=== PATIENT | male | born 1940 | race Caucasian/White ===

== ENCOUNTER → 2016-11-28 | Day surgery (SDC) | payer MEDICARE, OTHER ==
[~2016-11-28] VITALS: Ht 182.9 cm; Wt 81.5 kg
[~2016-11-28] MED LIST: ASPI325T PO; ASPI81CH CHEW; CILO50TA PO; CYAN1TAB24; CYCLOPENTOLATE HCL 1% OPHT SOLN 2 ML BTL ONE; FLURBIPROFEN 0.03% OPHT SOLN 2.5 ML BTL ONE; FOLI1 PO; HYALURONIDASE/LIDOCAINE/EPINEPHRINE/BUPIVACAINE 4.5 ML SYR RIGHT EYE ONE; HYALURONIDASE/LIDOCAINE/EPINEPHRINE/BUPIVACAINE 6 ML SYR ONE; HYALURONIDASE/LIDOCAINE/EPINEPHRINE/BUPIVACAINE 6 ML SYR RIGHT EYE ONE; LEVO.05 PO; LEVO75TA3 PO; LIDOCAINE HCL 1% 20 ML VIAL ONE; LIDOCAINE HCL 1% PF 30 ML VIAL INFIL ONE; LISI10 PO; LISI10TA3 PO; METO25 PO; METO50TA11 PO; METOPROLOL TARTRATE 25 MG TAB ONE; MULT1TAB46; MULT1TAB93 PO; PHENYLEPHRINE HCL 10% OPTH SOLN 5 ML BTL ONE; PROPARACAINE HCL 0.5% OPHT SOLN 15 ML BTL RIGHT EYE ONE; PROPOFOL 200 MG/20 ML AMP ONE; RISP1TAB2 PO; RISP1TAB54 PO; SODIUM CHLORID 0.9% 500 ML INJ 500 ML ONE; THIA100T PO; TOBRAMYCIN/DEXAMETHASONE OPTH OINT 3.5 GM TUBE RIGHT EYE ONE; TROPICAMIDE 1% OPHT SOLN 15 ML BTL ONE; VITA2000 PO
[2016-11-28 09:10] VITALS: PULSE 60
[2016-11-28] MEDS: FLURBIPROFEN 0.03% OPHT SOLN 2.5 ML BTL RIGHT EYE SCH ×4 (09:15→09:30)
[2016-11-28] MEDS: TROPICAMIDE 1% OPHT SOLN 15 ML BTL RIGHT EYE SCH ×4 (09:15→09:30)
[2016-11-28] MEDS: PHENYLEPHRINE HCL 10% OPTH SOLN 5 ML BTL RIGHT EYE SCH ×4 (09:15→09:30)
[2016-11-28] MEDS: CYCLOPENTOLATE HCL 1% OPHT SOLN 2 ML BTL RIGHT EYE SCH ×4 (09:15→09:30)
[2016-11-28 09:21] VITALS: BP 155/75; PULSE 61; RESP 18; TEMP 98.1; O2SAT 98
[2016-11-28 11:05] VITALS: BP 148/95; PULSE 64; RESP 16; TEMP 98; O2SAT 97
--- NOTE | 2016-12-03 23:43 | MP ---
cc: ANTHONY JOHNS MD [facility] # [id number] DATE OF SURGERY: 11/28/2016 PREOPERATIVE DIAGNOSIS: Visually significant cataract, right eye. POSTOPERATIVE DIAGNOSIS: Visually significant cataract, right eye. OPERATION: Phacoemulsification with posterior chamber lens implantation, right eye. SURGEON: Anthony Johns MD ANESTHESIA: Retrobulbar with MAC. COMPLICATIONS: None. PROCEDURE: After informed consent was obtained, the patient was brought into the operative suite and placed on appropriate monitors by the Anesthesia Service. The patient had received a prior retrobulbar injection of local anesthetic by the Anesthesia Service in the holding area. The patient's operative eye was then prepped and draped in the usual sterile fashion. A wire lid speculum was placed. A paracentesis incision was made in the peripheral cornea with a 1 mm devora keratome. The anterior chamber was filled with viscoelastic. The anterior chamber was then entered through a stepped, clear corneal incision using a sharp 3 mm devora keratome. A circular tear capsulorrhexis was then made with a bent needle cystitome. Following hydrodissection of the lens nucleus with balanced saline, phaco-emulsification of the nucleus was performed using a modified chopping technique. The remaining cortex was removed with irrigation/aspiration. The prior two procedures were both performed using the handpieces of the [employer] phaco unit. The capsular bag was then filled with viscoelastic. The intraocular lens was then injected into the capsular bag and positioned. The type of intraocular lens and its power can be found elsewhere in this chart. The remaining viscoelastic was then removed from the anterior chamber with the IA handpiece. The anterior chamber was reformed with balanced saline. The wound was then closed securely with stromal hydration. It was found to be watertight to an intraocular pressure of at least 30 mmHg by palpation. A small amount of balanced salt solution was then removed through the paracentesis site and the intraocular pressure at the end of the case was approximately 20 by palpation. All drapes were then removed. TobraDex ointment was then placed in the eye, which was closed beneath a semi-pressure patch dressing. The patient tolerated this procedure well and left the operating room awake and alert. The patient is to follow-up in my office in the morning. ADDENDUM: Due to the patient's poorly dilating pupil, a Malyugin ring was employed to promote and maintain adequate pupillary mydriasis for phacoemulsification and lens implantation. MD PAULA Muller/JOHNIE /10:46 AM /11:37 PM
== END | disposition home or self-care (01) ==
LOC: CSDC 07:57
PROVIDERS: ATTEND Optometrist Occupational Vision
DX: H25.811 Combined forms of age-related cataract, right eye (principal); I11.9 Hypertensive heart disease without heart failure; I25.10 Atherosclerotic heart disease of native coronary artery without angina pectoris; I25.2 Old myocardial infarction
CPT/HCPCS: 00142; 66984; J7040; V2632

== ENCOUNTER 2017-03-29 19:06 | Inpatient (IN) | payer MEDICARE, OTHER ==
[~2017-03-29] VITALS: Ht 182.9 cm; Wt 89.0 kg
[2017-03-29 02:35] VITALS: BP 153/77; PULSE 71; RESP 16; TEMP 98.4; O2SAT 99
[~2017-03-29 19:06] MED LIST changes: -ASPI81CH CHEW; -CILO50TA PO; -CYAN1TAB24; -CYCLOPENTOLATE HCL 1% OPHT SOLN 2 ML BTL ONE; -FLURBIPROFEN 0.03% OPHT SOLN 2.5 ML BTL ONE; -HYALURONIDASE/LIDOCAINE/EPINEPHRINE/BUPIVACAINE 4.5 ML SYR RIGHT EYE ONE; -HYALURONIDASE/LIDOCAINE/EPINEPHRINE/BUPIVACAINE 6 ML SYR ONE; -HYALURONIDASE/LIDOCAINE/EPINEPHRINE/BUPIVACAINE 6 ML SYR RIGHT EYE ONE; -LEVO75TA3 PO; -LIDOCAINE HCL 1% 20 ML VIAL ONE; -LIDOCAINE HCL 1% PF 30 ML VIAL INFIL ONE; -LISI10TA3 PO; -METO50TA11 PO; -METOPROLOL TARTRATE 25 MG TAB ONE; -MULT1TAB46; -MULT1TAB93 PO; -PHENYLEPHRINE HCL 10% OPTH SOLN 5 ML BTL ONE; -PROPARACAINE HCL 0.5% OPHT SOLN 15 ML BTL RIGHT EYE ONE; -PROPOFOL 200 MG/20 ML AMP ONE; -RISP1TAB2 PO; -SODIUM CHLORID 0.9% 500 ML INJ 500 ML ONE; -TOBRAMYCIN/DEXAMETHASONE OPTH OINT 3.5 GM TUBE RIGHT EYE ONE; -TROPICAMIDE 1% OPHT SOLN 15 ML BTL ONE; -VITA2000 PO
[2017-03-29 19:13] VITALS: BP 100/58; PULSE 91; RESP 14; TEMP 98.3; O2SAT 96
[2017-03-29 20:00] VITALS: BP 117/58; PULSE 82; RESP 18; O2SAT 98
[2017-03-29] MEDS ORDERED: VITA2000 PO (20:13)
[2017-03-29] MEDS ORDERED: LEVO75TA3 PO (20:13)
[2017-03-29] MEDS ORDERED: RISP1TAB2 PO (20:13)
[2017-03-29] MEDS ORDERED: CYAN1TAB24 (20:13)
[2017-03-29] MEDS ORDERED: ASPI81CH CHEW (20:13)
[2017-03-29] MEDS ORDERED: METO50TA11 PO (20:13)
[2017-03-29] MEDS ORDERED: MULT1TAB46 (20:13)
[2017-03-29] MEDS ORDERED: LISI10TA3 PO (20:13)
[2017-03-29] MEDS ORDERED: CILO50TA PO (20:13)
[2017-03-29] MEDS ORDERED: MULT1TAB93 PO (20:14)
[2017-03-29] MEDS ORDERED: SODIUM CHLORIDE 0.9% FLUSH 10 ML FLUSH IVF PRN (20:30)
--- NOTE | 2017-03-29 20:59 | PD ---
HPI Chief Complaint: Fall Time Seen by Provider: 20:09 Travel History International Travel<30 days: No Contact w/Intl Traveler<30days: No Traveled to known affect area: No History of Present Illness HPI Patient 77-year-old male presents emergency Department with weakness and fall and presyncopal symptoms. Patient's is accompanied by his sister states patient has a history of mild dementia. Apparently the patient was walking outside of his trailer and suddenly fell forward onto his knees. Patient states he felt very dizzy prior to this happening and almost blacked out. He denied any chest pain shortness of breath abdominal pain nausea or vomiting or diarrhea prior leading up to or following the event. The patient was evaluated by EMS on scene and apparently his blood pressure was 70 systolic. At that time the patient did not want to go to the hospital. He went under the care of a sister who took him into the house and was running serial blood pressures on him and was getting readings in the 60s for his blood pressure. She insisted that he come to the hospital and he complied. On arrival the patient is normotensive. He states that he had a catheterization partially 10 years ago, followed by Dr. sierra. Denies any head injury neck injury. PFSH Past Medical History Arthritis: No Anxiety: No Depression: Yes (Shizophrenia) Cancer: No Cardiovascular Problems: Yes Congestive Heart Failure: Yes Coronary Artery Disease: Yes Diabetes: No Diminished Hearing: No Endocrine: Yes Gastrointestinal Disorders: Yes Genitourinary: No Hepatitis: No Hiatal Hernia: No Hypertension: Yes Immune Disorder: No Medical other: Yes (PVD; parotid mass; macular degeneration) Musculoskeletal: No Neurologic: Yes (PARANOID SCHIZOPHRENIC , DEMENTIA WITH PSYCHOSIS) Psychiatric: Yes (Pt has been diagnosed with Psychosis NOS, Dementia WITH PSYCHOSIS) Reproductive: No Respiratory: No Immunizations Current: Yes Myocardial Infarction: Yes (2006) Schizophrenia: Yes Thyroid Disease: Yes (HYPOTHYROID) Tetanus Vaccination: Unknown Influenza Vaccination: Yes Past Surgical History Abdominal Surgery: Yes (CHOLECYSTECTOMY) AICD: No Cardiac Surgery: Yes (Hx cardiac cath, stents - see admit from 06/2007) Cholecystectomy: Yes Ear Surgery: No Eye Surgery: No Genitourinary Surgery: Yes (VASECTOMY) Gynecologic Surgery: No Joint Replacement: No Neurologic Surgery: No Pacemaker: No Tonsillectomy: Yes Other Surgery: Yes Social History Alcohol Use: Yes (1 per Year) Tobacco Use: No Substance Use: No Allergies-Medications (Allergen,Severity, Reaction): Coded Allergies: Penicillin (Verified Allergy, Mild, 03/29/17) PT DENIES Reported Meds & Prescriptions Reported Meds & Active Scripts Active Reported Eye Vitamins & Minerals (Multiple Vitamins W/ Minerals) 1 Tab Tab 1 Cap PO DAILY Multi Vitamin Daily (Multiple Vitamin) 1 Tab Tab B12 (Cyanocobalamin) 1,000 Mcg Tab 1,500 Vitamin D3 (Cholecalciferol) 2,000 Unit Cap 2,000 Units PO DAILY Levothyroxine (Levothyroxine Sodium) 75 Mcg Tab 75 Mcg PO DAILY Risperidone 1 Mg Tab 1 Mg PO DAILY Lisinopril 10 Mg Tab 10 Mg PO DAILY Metoprolol Succinate ER 24 HR (Metoprolol Succinate) 50 Mg Tab 50 Mg PO DAILY Cilostazol 50 Mg Tab 50 Mg PO BID Aspirin 81 Mg Chew 81 Mg CHEW DAILY Review of Systems Except as stated in HPI: all other systems reviewed are Neg Physical Exam Narrative GENERAL: Well-developed well-nourished no apparent distress SKIN: Mild superficial abrasions to bilateral knees over the kneecaps. HEAD: Atraumatic. Normocephalic. Signs no raccoons eyes EYES: Pupils equal and round. No scleral icterus. No injection or drainage. ENT: No nasal bleeding or discharge. Mucous membranes pink and moist. NECK: Trachea midline. No JVD. No midline neck tenderness CARDIOVASCULAR: Regular rate and rhythm. No murmur appreciated. RESPIRATORY: No accessory muscle use. Clear to auscultation. Breath sounds equal bilaterally. GASTROINTESTINAL: Abdomen soft, non-tender, nondistended. Hepatic and splenic margins not palpable. MUSCULOSKELETAL: No obvious deformities. No clubbing. No cyanosis. No edema. No bony tenderness of either knee, full nontender range of motion. Is able to family. No tenderness at the hip ankles or feet, no tenderness of the shoulders elbows wrists or hands. Pulses motor and sensory intact distally in all 4 extremity's per NEUROLOGICAL: Awake and alert. No obvious cranial nerve deficits. Motor grossly within normal limits. Normal speech. PSYCHIATRIC: Appropriate mood and affect; insight and judgment normal. Data Data Last Documented VS Vital Signs Date Time Temp Pulse Resp B/P Pulse Ox O2 Delivery O2 Flow Rate FiO2 03/29/17 23:39 98 03/29/17 20:00 03/29/17 20:00 82 18 Room Air 03/29/17 19:13 98.3 Orders Electrocardiogram (03/29/17 20:27) Basic Metabolic Panel (Bmp) (03/29/17 20:27) B-Type Natriuretic Peptide (03/29/17 20:27) Ckmb (Isoenzyme) Profile (03/29/17 20:27) Complete Blood Count With Diff (03/29/17 20:) Magnesium (Mg) (03/29/17 20:27) Prothrombin Time / Inr (Pt) (03/29/17 20:27) Act Partial Throm Time (Ptt) (03/29/17 20:27) Troponin I (03/29/17 20:27) Chest, Single Ap (03/29/17 20:27) Ecg Monitoring (03/29/17 20:27) Iv Access Insert/Monitor (03/29/17 20:27) Oximetry (03/29/17 20:27) Oxygen Administration (03/29/17 20:27) Sodium Chloride 0.9% Flush (Ns Flush) (03/29/17 20:30) Ct Brain W/O Iv Contrast(Rout) (03/29/17 ) Ct Cerv Spine W/O Contrast (03/29/17 ) CKMB (03/29/17 20:50) CKMB% (03/29/17 20:50) Sodium Chlorid 0.9% 500 Ml Inj (Ns 500 M (03/29/17 21:45) Thyroid Stimulating Hormone (03/29/17 21:34) Free T3 (03/29/17 21:34) Free Thyroxine (T4) (03/29/17 21:34) Admit To Inpatient (03/29/17 ) Code Status (03/29/17 23:25) Vital Signs (Adult) Q4H (03/29/17 23:25) Activity Oob With Assistance (03/29/17 23:25) Healthcare Specialist / Telemetry .CONTINUOUS (03/29/17 23:25) Diet Heart Healthy (03/30/17 Breakfast) Sodium Chloride 0.9% Flush (Ns Flush) (03/29/17 23:30) Sodium Chloride 0.9% Flush (Ns Flush) (03/30/17 09:00) Acetaminophen (Tylenol) (03/29/17 23:30) Ondansetron Inj (Zofran Inj) (03/29/17 23:30) Basic Metabolic Panel (Bmp) (03/30/17 06:00) Complete Blood Count With Diff (03/30/17 06:00) Resp Oxygen Ray C Titrat 1-4 L (03/29/17 ) Pt Request For Service (03/29/17 23:25) Scd Bilateral/Knee High DO.BID (03/29/17 23:25) Naloxone Inj (Narcan Inj) (03/29/17 23:30) Magnesium Hydroxide Liq (Milk Of Magnesi (03/29/17 23:30) Inpatient Certification (03/29/17 ) 1/2 Ns + Kcl 20 Meq Inj (1/2 Ns + Kcl 20 (03/29/17 23:30) Aspirin (Aspirin) (03/30/17 09:00) Nitroglycerin Sl (Nitrostat Sl) (03/29/17 23:30) Alprazolam (Xanax) (03/29/17 23:30) Creatine Kinase (Cpk) (03/30/17 04:00) Creatine Kinase (Cpk) (03/30/17 10:00) Magnesium (Mg) (03/29/17 23:30) Electrocardiogram (03/30/17 04:00) Electrocardiogram (03/30/17 10:00) Scd Bilateral/Knee High DO.BID (03/29/17 23:30) Troponin I (03/30/17 04:00) Troponin I (03/31/17 04:00) Cilostazol (Pletal) (03/30/17 09:00) Levothyroxine (Synthroid) (03/30/17 09:00) Risperidone (Risperdal) (03/30/17 09:00) Rapid Plasma Regin (Rpr) W Ttr (03/29/17 23:37) Vitamin B12 (03/29/17 23:37) Folate, Serum (03/29/17 23:37) Ammonia (03/29/17 23:37) Admit Order (Ed Use Only) (03/29/17 ) Aspirin Chew (Aspirin Chew) (03/29/17 23:45) Labs Laboratory Tests Test 03/29/17 20:50 White Blood Count 7.7 TH/MM3 Red Blood Count 4.00 MIL/MM3 Hemoglobin 11.7 GM/DL Hematocrit 36.0 % Mean Corpuscular Volume 90.1 FL Mean Corpuscular Hemoglobin 29.2 PG Mean Corpuscular Hemoglobin 32.4 % Concent Red Cell Distribution Width 13.6 % Platelet Count 146 TH/MM3 Mean Platelet Volume 9.7 FL Neutrophils (%) (Auto) 72.4 % Lymphocytes (%) (Auto) 15.6 % Monocytes (%) (Auto) 6.0 % Eosinophils (%) (Auto) 4.2 % Basophils (%) (Auto) 1.8 % Neutrophils # (Auto) 5.6 TH/MM3 Lymphocytes # (Auto) 1.2 TH/MM3 Monocytes # (Auto) 0.5 TH/MM3 Eosinophils # (Auto) 0.3 TH/MM3 Basophils # (Auto) 0.1 TH/MM3 CBC Comment AUTO DIFF Differential Comment AUTO DIFF CONFIRMED Platelet Estimate LOW Platelet Morphology Comment NORMAL Prothrombin Time 12.0 SEC Prothromb Time International 1.1 RATIO Ratio Activated Partial 21.7 SEC Thromboplast Time Sodium Level 139 MEQ/L Potassium Level 4.1 MEQ/L Chloride Level 105 MEQ/L Carbon Dioxide Level 27.6 MEQ/L Anion Gap 6 MEQ/L Blood Urea Nitrogen 29 MG/DL Creatinine 1.90 MG/DL Estimat Glomerular Filtration 35 ML/MIN Rate Random Glucose 198 MG/DL Calcium Level 8.4 MG/DL Magnesium Level 2.3 MG/DL Total Creatine Kinase 119 U/L Creatine Kinase MB 1.8 NG/ML Troponin I 0.56 NG/ML B-Type Natriuretic Peptide 238 PG/ML Thyroid Stimulating Hormone 10.400 uIU/ML [address] [place] [address] Medical Decision Making Medical Screen Exam Complete: Yes Emergency Medical Condition: Yes Interpretation(s) EKG shows sinus rhythm with a singular PVC, a bundle branch block, no concerning ST T changes. Left axis deviation. Abnormal EKG. Comparison to 03/03 shows T waves are no longer inverted in V4 through V6. This nonspecific change. Differential Diagnosis ACS, AMI, hypertension, acute kidney injury, dehydration, head injury, neck injury seems highly unlikely. Narrative Course Patient was roomed in the emergency department, he does have some mild confusion and majority of history is obtained from his sister Lindsay Espinoza ([phone]). Patient EKG does show some minor nonspecific changes from previous. Troponin is +0.5 patient has been running point fours in the past. In March 2016 patient did have a reversible perfusion defect on nuclear medicine scan. Concerning is that the patient has an elevation in creatinine over labs at that time indicating an acute kidney injury. He was given 500 cc normal saline cautiously. Have attempted to contact his sister she left the hospital to obtain his risk factors for heparin. The patient was discussed with Dr. Obrien recommends [facility] admission. Highly doubt any fractures in this patient is able to ambulate has no bony tenderness. Last 24 hours Impressions Chest X-Ray 03/29/172026 Signed Impressions: Service Date/Time: Wednesday, March 29, 2017 21:06 - CONCLUSION: Compensated cardiomegaly otherwise negative Denis López MD FACR Head CT 03/29/17 0000 Signed Impressions: Service Date/Time: Wednesday, March 29, 2017 21:03 - CONCLUSION: Negative for acute process. MD PERRY MeyersR Cervical Spine CT 03/29/17 0000 Signed Impressions: Service Date/Time: Wednesday, March 29, 2017 21:03 - CONCLUSION: 1. Degenerative changes as described above. 2. There is no evidence of fracture. Denis López MD FACR Patient was discussed with who agrees for admission. He'll be transferred to [facility] at the [facility]. We'll hold off on heparinization at this time. Diagnosis Primary Impression: Elevated troponin Additional Impressions: Hypothyroidism Qualified Code: E03.9 - Hypothyroidism, unspecified type Acute kidney injury Admitting Information Admitting Physician Requests: Observation Condition: Stable Manjinder Humphrey MD March 29, 2017 20:58
[2017-03-29 21:17] LABS: AUTOMATED NEUTROPHIL # 5.6 TH/MM3 (1.8-7.7); BASOPHIL # 0.1 TH/MM3 (0-0.2); BASOPHIL % 1.8 % (0.0-2.0); EOSINOPHIL # 0.3 TH/MM3 (0-0.4); EOSINOPHIL % 4.2 % (0.0-4.0); LYMPH % 15.6 % (9.0-44.0); LYMPHOCYTE # 1.2 TH/MM3 (1.0-4.8); MEAN CELL VOLUME 90.1 FL (80.0-100.0); MEAN CORPUSCULAR HEMOGLOBIN 29.2 PG (27.0-34.0); MEAN CORPUSCULAR HGB CONC 32.4 % (32.0-36.0); NEUT % 72.4 % (16.0-70.0); PLATELET COUNT 146 TH/MM3 (150-450); RED CELL DISTRIBUTION WIDTH 13.6 % (11.6-17.2); WHITE BLOOD COUNT 7.7 TH/MM3 (4.0-11.0)
--- NOTE | 2017-03-29 21:19 | RADHPO ---
EXAM DATE/TIME: 03/29/2017 21:06 [facility] COMPARISON: CHEST SINGLE AP, March 02, 2016, 16:13. INDICATIONS : Chest pain. MEDICAL HISTORY : None. SURGICAL HISTORY : None. ENCOUNTER: Initial ACUITY: 2 days PAIN SCORE: 6/10 LOCATION: Bilateral chest FINDINGS: The lungs are clear. The heart is minimally enlarged. The pulmonary vascularity is normal. There is n o evidence for infiltrate or failure. The portion of the bony skeleton visualized is unremarkable. CONCLUSION: Compensated cardiomegaly otherwise negative Denis López MD FACR Board Certified Radiologist. This report was verified electronically.
[2017-03-29 21:20] LABS: CHLORIDE 105 MEQ/L (98-107); POTASSIUM 4.1 MEQ/L (3.5-5.1); SODIUM (NA) 139 MEQ/L (136-145)
[2017-03-29 21:23] LABS: ANION GAP 6 MEQ/L (5-15); BICARBONATE 27.6 MEQ/L (21.0-32.0); BLOOD UREA NITROGEN 29 MG/DL (7-18); MAGNESIUM 2.3 MG/DL (1.5-2.5)
[2017-03-29 21:26] LABS: GLOMERULAR FILTRATION RATE 35 ML/MIN (>89)
[2017-03-29 21:27] LABS: APTT (PATIENT) 21.7 SEC (24.3-30.1); HEMO FLAGS AUTO DIFF; INTERNATIONAL NORMALIZED RATIO 1.1 RATIO
[2017-03-29 21:29] LABS: CREATINE KINASE 119 U/L (39-308)
[2017-03-29 21:41] LABS: CKMB 1.8 NG/ML (0.5-3.6)
[2017-03-29] MEDS ORDERED: SODIUM CHLORID 0.9% 500 ML INJ 500 ML IV ONE (21:45)
--- NOTE | 2017-03-29 21:57 | RADHPO ---
EXAM DATE/TIME: 03/29/2017 21:03 [facility] COMPARISON: No previous studies available for comparison. INDICATIONS : Syncope with fall. RADIATION DOSE: 64.84 CTDIvol (mGy) MEDICAL HISTORY : Cardiovascular disease. Dementia. Hypertension. SURGICAL HISTORY : Tonsillectomy. Cholecystectomy. ENCOUNTER: Initial ACUITY: 1 day PAIN SCALE: 0/10 LOCATION: cranial TECHNIQUE: Multiple contiguous axial images were obtained of the head. Using automated exposure control and adj ustment of the mA and/or kV according to patient size, radiation dose was kept as low as reasonably a chievable to obtain optimal diagnostic quality images. FINDINGS: CEREBRUM: The ventricles are normal for age. No evidence of midline shift, mass lesion, hemorrhage or acute in farction. No extra-axial fluid collections are seen. POSTERIOR FOSSA: The cerebellum and brainstem are intact. The 4th ventricle is midline. The cerebellopontine angle i s unremarkable. EXTRACRANIAL: The visualized portion of the orbits is intact. SKULL: The calvaria is intact. No evidence of skull fracture. Moderate skull base the vascular calcifications are noted. CONCLUSION: Negative for acute process. Denis López MD FACR on March 29, 2017 at 21:55 Board Certified Radiologist. This report was verified electronically.
[2017-03-29 22:01] LABS: PLATELET ESTIMATE SMEAR LOW (NORMAL); PLATELET MORPHOLOGY NORMAL (NORMAL); SCAN/DIFF AUTO DIFF CONFIRMED
--- NOTE | 2017-03-29 22:04 | RADHPO ---
EXAM DATE/TIME: 03/29/2017 21:03 [facility] COMPARISON: No previous studies available for comparison. INDICATIONS : Syncope with fall. RADIATION DOSE: 26.49 CTDIvol (mGy) MEDICAL HISTORY : Dementia. Cardiovascular disease Hypertension. SURGICAL HISTORY : Tonsillectomy. Cholecystectomy. ENCOUNTER: Initial ACUITY: 1 day PAIN SCALE: 0/10 LOCATION: Neck TECHNIQUE: Volumetric scanning of the cervical spine was performed. Multiplanar reconstructions i n the sagittal, coronal and oblique axial planes were performed. Using automated exposure control a nd adjustment of the mA and/or kV according to patient size, radiation dose was kept as low as reason ably achievable to obtain optimal diagnostic quality images. FINDINGS: There are extensive degenerative changes in the cervical spine. Alignment is anatomic in the sagitta l and coronal projections. Degenerative changes are seen at C1-C2. C2-C3: Mild interspace ridging is present without significant spinal stenosis. C3-C4: Moderate facet disease is present with mild bilateral neural foraminal encroachment and uncin ate ridging. C4-C5: Generalized bulging is present with mild bilateral neural foraminal encroachment. Moderate f acet disease is present on the right. C5-C6: Moderate central bulging is present with bilateral neural foraminal encroachment with facet d isease worse on the right. C6-C7: Moderate uncinate ridging is present with significant left-sided neural foraminal encroachmen t. C7-T1: The bony spinal canal is normal in size. No evidence of disc bulge or herniation. The neura l foramina are bilaterally patent. CONCLUSION: 1. Degenerative changes as described above. 2. There is no evidence of fracture. Denis López MD FACR on March 29, 2017 at 21:55 Board Certified Radiologist. This report was verified electronically.
[2017-03-29 22:05] VITALS: BP 149/73; PULSE 64; RESP 18; O2SAT 99
[2017-03-29 23:10] VITALS: BP 134/72; PULSE 60; RESP 16; O2SAT 97
[2017-03-29] MEDS ORDERED: NALOXONE HCL 0.4 MG/ML AMP IV PRN (23:30)
[2017-03-29] MEDS ORDERED: ONDANSETRON HCL 4 MG/2 ML VIAL IVP PRN (23:30)
[2017-03-29] MEDS ORDERED: ACETAMINOPHEN 325 MG TAB PO PRN (23:30)
[2017-03-29] MEDS ORDERED: SODIUM CHLORIDE 0.9% FLUSH 10 ML FLUSH IV FLUSH PRN (23:30)
[2017-03-29] MEDS ORDERED: ALPRAZolam 0.25 MG TAB PO PRN (23:30)
[2017-03-29] MEDS ORDERED: MAGNESIUM HYDROXIDE SUSP 30 ML CUP PO PRN (23:30)
[2017-03-29] MEDS ORDERED: NITROGLYCERIN 0.4 MG SL 25 TABS/BTL SL PRN (23:30)
[2017-03-29 23:39] VITALS: O2SAT 98
[2017-03-29] MEDS ORDERED: ASPIRIN 81 MG CHEW TAB CHEW ONE (23:45)
[2017-03-30] VITALS (25 sets, daily range): BP systolic 132–156; BP diastolic 64–83; PULSE 58–95; RESP 14–18; TEMP 97.5–98.6; O2SAT 92–100
[2017-03-30 00:04] LABS: FREE T3 1.45 PG/ML (2.18-3.98); FREE T4 0.93 NG/DL (0.76-1.46)
[2017-03-30] MEDS: 1/2 NS + KCL 20 MEQ INJ 1,000 ML IV SCH ×3 (00:26→23:20)
[2017-03-30 04:38] LABS: AUTOMATED NEUTROPHIL # 4.6 TH/MM3 (1.8-7.7); BASOPHIL % 0.4 % (0.0-2.0); EOSINOPHIL # 0.5 TH/MM3 (0-0.4); EOSINOPHIL % 6.7 % (0.0-4.0); HEMATOCRIT 34.7 % (39.0-51.0); HEMO FLAGS DIFF FINAL; LYMPH % 23.9 % (9.0-44.0); LYMPHOCYTE # 1.8 TH/MM3 (1.0-4.8); MEAN CELL VOLUME 89.7 FL (80.0-100.0); MEAN CORPUSCULAR HGB CONC 33.5 % (32.0-36.0); MONO % 9.4 % (0.0-8.0); NEUT % 59.6 % (16.0-70.0); PLATELET COUNT 125 TH/MM3 (150-450); RED BLOOD COUNT 3.87 MIL/MM3 (4.50-5.90); RED CELL DISTRIBUTION WIDTH 14.5 % (11.6-17.2); WHITE BLOOD COUNT 7.7 TH/MM3 (4.0-11.0)
[2017-03-30 04:58] LABS: BICARBONATE 25.8 MEQ/L (21.0-32.0); POTASSIUM 3.8 MEQ/L (3.5-5.1)
[2017-03-30] MEDS: LEVOTHYROXINE SODIUM 75 MCG TAB PO SCH (07:00)
[2017-03-30] MEDS: SODIUM CHLORIDE 0.9% FLUSH 10 ML FLUSH IV FLUSH SCH ×2 (09:24→20:20)
[2017-03-30] MEDS: ASPIRIN 325 MG TAB PO SCH (09:24)
--- NOTE | 2017-03-30 10:50 | MB ---
cc: HIEN GARRETT DATE OF CONSULTATION: 03/30/2017 REASON FOR CONSULTATION: Abnormal troponin levels, hypotension. HISTORY OF PRESENT ILLNESS The patient is a 77-year-old white male with a history of chronic renal insufficiency, hypothyroidism, coronary artery disease, ischemic cardiomyopathy who was brought to the hospital after a near-syncopal episode. The patient states he was waiting for the bus when after looking into the sun he became severely lightheaded and suddenly fell to his knees. The patient states he never lost consciousness but did experience near-syncope. Emergency services at the scene apparently noted his systolic blood pressure in the 70s. Initially the patient did not want to go to the hospital. His sister continued to check his blood pressure and because it was persistently low, he was brought to the hospital. The patient denies any prior episode of syncope or near-syncope. He also denies any recent chest pains, shortness of breath, palpitations, pedal edema, paroxysmal nocturnal dyspnea. For the most part he is sedentary. He reports compliance with medications. PAST MEDICAL HISTORY 1. Coronary artery disease status post acute inferior wall myocardial infarction 06/12/2007 at which time he underwent bare metal stenting of the proximal right coronary using a 3.5-mm Vision stent and bare metal stenting of the mid LAD using a 2.0-mm Vision stent by Dr. Danial Ferreira. 2. Ischemic cardiomyopathy with ejection fraction of 30-35% by echo 03/04/2016. 3. Chronic renal insufficiency. 4. Hypothyroidism. 5. Schizophrenia. 6. Paroxysmal atrial fibrillation shortly after his coronary intervention back in 2006 without definite recurrence. PAST SURGICAL HISTORY 1. Right cataract operation 11/28/2016. 2. Cholecystectomy. 3. Tonsillectomy. CARDIAC MEDICATIONS AT HOME: 1. Lisinopril 10 mg daily. 2. Metoprolol succinate 50 mg daily. 3. Aspirin 81 mg daily. 4. Pletal 50 mg b.i.d. ALLERGIES Penicillin FAMILY HISTORY Noncontributory. SOCIAL HISTORY The patient quit smoking about a year ago. He denies alcohol or drug abuse. REVIEW OF SYSTEMS: As in the history of present illness, otherwise negative or noncontributory. He also denies headache, visual changes, unilateral weakness or numbness, abdominal pain, melena, dyspepsia, bright red blood per rectum. PHYSICAL EXAMINATION On physical examination blood pressure 153/77 with a pulse of 58, respirations 16. In general he is a well-developed, well-nourished white male in no acute distress HEENT examination: Jugular venous pressure is normal. Carotid pulses are 2+ bilaterally and without bruits. CHEST: Examination of the chest reveals unlabored respiratory effort with clear lung sheridan. CARDIAC: On cardiac examination he has a regular rhythm and rate without S3-S4 or murmur. ABDOMEN: He has a soft, nontender abdomen. Bowel sounds are present. There is no definite hepatosplenomegaly. EXTREMITIES: Examination of the extremities reveals no clubbing, cyanosis or edema. EKG shows normal sinus rhythm, right bundle-branch block, inferior ST-elevation consider acute injury pattern, poor R-wave progression, no change compared to previous EKGs. LABORATORY DATA: Laboratory data includes WBC 7.7, hemoglobin 11.6, platelets 125, potassium 3.8, BUN 27, creatinine 1.49, troponin 0.62, CK 111. Chest x-ray: Shows no acute disease. IMPRESSION Near syncope, hypotension, slightly abnormal troponin levels in this 77-year-old white male with a history of coronary artery disease, ischemic cardiomyopathy, chronic renal insufficiency, hypothyroidism. Overall I doubt the slightly elevated troponin levels are due to acute coronary syndrome. He has had no recent angina symptoms. The inferior S-T segment changes on EKG appear to be old. CK's are negative for myocardial infarction. The slightly elevated troponin level may be due to the hypotension he sustained. The etiology of the hypotension is not entirely clear. He has been normotensive here in the hospital. There is no definite evidence for congestive heart failure. Thus far there has been no evidence for significant arrhythmias. With his history of severe ischemic cardiomyopathy, he is obviously at increased risk for ventricular tachyarrhythmias. RECOMMENDATIONS 1. Check a nuclear stress test to rule out significant myocardial ischemia; unless a large amount of ischemia is demonstrated would recommend medical therapy. 2. Check a 2-D echo to assess his left ventricular function. If his ejection fraction is less than 35%, consider discussing AICD implantation with the patient and his family. 3. Continue his usual home cardiac medications. Buddy Garrett MD Sara/JOHNIE /10:20 AM 10:37 AM WILL
--- NOTE | 2017-03-30 11:11 | HHI.HP ---
HPI Service [facility] Hospitalists Primary Care Physician Frantz Alvarez MD Admission Diagnosis Elevated troponin, transient hypotension, ADOLPH. Chief Complaint: near syncope Travel History International Travel<30 Days: No Contact w/Intl Traveler <30 Da: No Traveled to Known Affected Are: No History of Present Illness Patient is a 77-year-old male with history of chronic renal insufficiency, hypothyroidism, coronary artery disease, ischemic cardiomyopathy, and some dementia. Patient was brought to the ER after near syncopal episode Patient reports that while waiting for the bus he became lightheaded and fell to his knees. Patient denies any loss of consciousness. In the field patient was found to be hypotensive. His sister continue to check patient's blood pressures at home and found them to be low which led to patient seeking attention the ER. Patient denies previous episodes of same. No chest pain. No palpitations. Good by mouth intake. No nausea vomiting or diarrhea Review of Systems Constitutional: DENIES: Diaphoretic episodes, Fatigue, Fever, Weight gain, Weight loss, Chills, Dizziness, Change in appetite, Night Sweats Endocrine: DENIES: Heat/cold intolerance, Polydipsia, Polyuria, Polyphagia Eyes: DENIES: Blurred vision, Diplopia, Eye inflammation, Eye pain, Vision loss , Photosensitivity, Double Vision Ears, nose, mouth, throat: DENIES: Tinnitus, Hearing loss, Vertigo, Nasal discharge, Oral lesions, Throat pain, Hoarseness, Ear Pain, Running Nose, Epistaxis, Sinus Pain, Toothache, Odynophagia Respiratory: DENIES: Apneas, Cough, Snoring, Wheezing, Hemoptysis, Sputum production, Shortness of breath Cardiovascular: DENIES: Chest pain, Palpitations, Syncope, Dyspnea on Exertion , PND, Lower Extremity Edema, Orthopnea, Claudication Gastrointestinal: DENIES: Abdominal pain, Black stools, Bloody stools, BRB per rectum, Constipation, Diarrhea, GERD, Nausea, Reflux, Vomiting, Difficulty Swallowing, Anorexia Genitourinary: DENIES: Urinary frequency, Urinary incontinence, Urgency, Hematuria, Dysuria, Nocturia Musculoskeletal: DENIES: Joint pain, Muscle aches, Stiffness, Joint Swelling, Back pain, Neck pain Integumentary: DENIES: Abnormal pigmentation, Nail changes, Pruritus, Rash Hematologic/lymphatic: DENIES: Bruising, Lymphadenopathy Neurologic: DENIES: Abnormal gait, Headache, Localized weakness, Paresthesias, Seizures, Speech Problems, Tremor, Poor Balance Psychiatric: DENIES: Anxiety, Confusion, Mood changes, Depression, Hallucinations, Agitation, Suicidal Ideation, Homicidal Ideation, Delusions, History of Bipolar, History of Schizophrenia Past Family Social History Past Medical History 1. Coronary artery disease status post acute inferior wall myocardial infarction 06/12/2007 at which time he underwent bare metal stenting of the proximal right coronary using a 3.5-mm Vision stent and bare metal stenting of the mid LAD using a 2.0-mm Vision stent by Dr. Danial Ferreira. 2. Ischemic cardiomyopathy with ejection fraction of 30-35% by echo 03/04/2016. 3. Chronic renal insufficiency. 4. Hypothyroidism. 5. Schizophrenia. 6. Paroxysmal atrial fibrillation shortly after his coronary intervention back in 2006 without definite recurrence. Past Surgical History 1. Right cataract operation 11/28/2016. 2. Cholecystectomy. 3. Tonsillectomy. Reported Medications Reported Meds & Active Scripts Active Reported Eye Vitamins & Minerals (Multiple Vitamins W/ Minerals) 1 Tab Tab 1 Cap PO DAILY Multi Vitamin Daily (Multiple Vitamin) 1 Tab Tab B12 (Cyanocobalamin) 1,000 Mcg Tab 1,500 Vitamin D3 (Cholecalciferol) 2,000 Unit Cap 2,000 Units PO DAILY Levothyroxine (Levothyroxine Sodium) 75 Mcg Tab 75 Mcg PO DAILY Risperidone 1 Mg Tab 1 Mg PO DAILY Lisinopril 10 Mg Tab 10 Mg PO DAILY Metoprolol Succinate ER 24 HR (Metoprolol Succinate) 50 Mg Tab 50 Mg PO DAILY Cilostazol 50 Mg Tab 50 Mg PO BID Aspirin 81 Mg Chew 81 Mg CHEW DAILY Allergies: Coded Allergies: Penicillin (Verified Allergy, Mild, 03/29/17) PT DENIES Family History Noncontributory Social History - Former smoker - Denies alcohol - Denies illicit street drugs Physical Exam Vital Signs Vital Signs Date Time Temp Pulse Resp B/P Pulse Ox O2 Delivery O2 Flow Rate FiO2 03/30/17 10:25 97 03/30/17 03:00 58 03/30/17 02:35 98.4 71 16 153/77 99 03/30/17 02:10 98.2 87 18 144/68 98 03/30/17 01:15 82 18 132/72 98 Room Air 03/30/17 00:10 95 17 156/64 98 Room Air 5/27/17 23:39 98 03/29/17 23:10 60 16 134/72 97 Room Air 03/29/17 22:05 Room Air 03/29/17 22:05 64 18 149/73 99 Room Air 03/29/17 20:00 03/29/17 20:00 82 18 117/58 98 Room Air 03/29/17 20:00 98 Room Air 03/29/17 19:13 98.3 91 14 100/58 96 Room Air Physical Exam GENERAL: This is a well-nourished, well-developed patient, in no apparent distress. SKIN: No rashes, ecchymoses or lesions. Cool and dry. HEAD: Atraumatic. Normocephalic. No temporal or scalp tenderness. EYES: Pupils equal round and reactive. Extraocular motions intact. No scleral icterus. No injection or drainage. ENT: Nose without bleeding, purulent drainage or septal hematoma. Throat without erythema, tonsillar hypertrophy or exudate. Uvula midline. Airway patent. NECK: Trachea midline. No JVD or lymphadenopathy. Supple, nontender, no meningeal signs. CARDIOVASCULAR: Regular rate and rhythm without murmurs, gallops, or rubs. RESPIRATORY: Clear to auscultation. Breath sounds equal bilaterally. No wheezes , rales, or rhonchi. GASTROINTESTINAL: Abdomen soft, non-tender, nondistended. No hepato-splenomegaly , or palpable masses. No guarding. MUSCULOSKELETAL: Extremities without clubbing, cyanosis, or edema. No joint tenderness, effusion, or edema noted. No calf tenderness. Negative Homans sign bilaterally. NEUROLOGICAL: Awake and alert. Cranial nerves II through XII intact. Motor and sensory grossly within normal limits. Five out of 5 muscle strength in all muscle groups. Normal speech. Laboratory Laboratory Tests Test 03/29/17 03/30/17 20:50 03:50 White Blood Count 7.7 7.7 Red Blood Count 4.00 3.87 Hemoglobin 11.7 11.6 Hematocrit 36.0 34.7 Mean Corpuscular Volume 90.1 89.7 Mean Corpuscular Hemoglobin 29.2 30.0 Mean Corpuscular Hemoglobin 32.4 33.5 Concent Red Cell Distribution Width 13.6 14.5 Platelet Count 146 125 Mean Platelet Volume 9.7 9.5 Neutrophils (%) (Auto) 72.4 59.6 Lymphocytes (%) (Auto) 15.6 23.9 Monocytes (%) (Auto) 6.0 9.4 Eosinophils (%) (Auto) 4.2 6.7 Basophils (%) (Auto) 1.8 0.4 Neutrophils # (Auto) 5.6 4.6 Lymphocytes # (Auto) 1.2 1.8 Monocytes # (Auto) 0.5 0.7 Eosinophils # (Auto) 0.3 0.5 Basophils # (Auto) 0.1 0.0 CBC Comment AUTO DIFF DIFF FINAL Differential Comment AUTO DIFF CONFIRMED Platelet Estimate LOW Platelet Morphology Comment NORMAL Prothrombin Time 12.0 Prothromb Time International 1.1 Ratio Activated Partial 21.7 Thromboplast Time Sodium Level 139 139 Potassium Level 4.1 3.8 Chloride Level 105 105 Carbon Dioxide Level 27.6 25.8 Anion Gap 6 8 Blood Urea Nitrogen 29 27 Creatinine 1.90 1.49 Estimat Glomerular Filtration 35 46 Rate Random Glucose 198 111 Calcium Level 8.4 8.1 Magnesium Level 2.3 Total Creatine Kinase 119 111 Creatine Kinase MB 1.8 Troponin I 0.56 0.62 B-Type Natriuretic Peptide 238 Free Thyroxine 0.93 Free Triiodothyronine (T3) 1.45 pg/dL Thyroid Stimulating Hormone 10.400 3rd Gen Result Diagram: 03/30/17 0350 03/30/17 0350 Imaging Last Impressions Chest X-Ray 03/29/172026 Signed Impressions: Service Date/Time: Wednesday, March 29, 2017 21:06 - CONCLUSION: Compensated cardiomegaly otherwise negative Denis López MD FACR Head CT 03/29/17 0000 Signed Impressions: Service Date/Time: Wednesday, March 29, 2017 21:03 - CONCLUSION: Negative for acute process. Denis López MD FACR Cervical Spine CT 03/29/17 0000 Signed Impressions: Service Date/Time: Wednesday, March 29, 2017 21:03 - CONCLUSION: 1. Degenerative changes as described above. 2. There is no evidence of fracture. Denis López MD FACR Septic Shock Reassessment Heart: Regular rate and rhythm Lungs: Clear Skin: Warm Peripheral Pulses: Bounding Right Radial Bounding Left Radial Bounding Right Popliteal Bounding Left Popliteal Bounding Right Dorsalis Pedis Bounding Left Dorsalis Pedis Bounding Right Posterior Tibial Bounding Left Posterior Tibial Capillary Refill: Brisk Assessment and Plan Problem List: (1) Near syncope Status: Acute Plan: - CT brain (03/30/17) --> no acute findings - observe on telemetry - obtain echocardiogram - hypotension in the field, but normotensive since admission - await PT evaluation (2) Hypotension Status: Acute Plan: - see above - resolved (3) Elevated troponin Status: Acute Plan: - flat pattern - NO c/o chest pain - obtain echocardiogram - obtain lexiscan (4) CAD (coronary artery disease) Status: Acute Plan: - lisinopril, metoprolol, asa - see above (5) Schizophrenia Status: Acute Plan: - continue Risperdal - also report of early dementia (6) Hypothyroid Status: Chronic Plan: - TSH was high on admission at 10.4 - unclear if pt was taking his synthroid - resume synthroid at outpt dose, repeat TSH in a few days to see trend - repeat TSH and free T4 in 4-6 weeks (7) Ischemic cardiomyopathy Status: Chronic Plan: - EF 30-35% by echo 03/04/06 - repeat echocardiogram (8) CRI (chronic renal insufficiency) Status: Chronic Plan: - observe (9) Abrasion of knee, bilateral Status: Acute Plan: - wash with soap and water daily - cover with telfa dressing Physician Certification 2 Midnight Certification Type: Admission for Inpatient Services Order for Inpatient Services The services are ordered in accordance with Medicare regulations or non- Medicare payer requirements, as applicable. In the case of services not specified as inpatient-only, they are appropriately provided as inpatient services in accordance with the 2-midnight benchmark. Estimated LOS (days): 3 3 days is the estimated time the patient will need to remain in the hospital, assuming treatment plan goals are met and no additional complications. Post-Hospital Plan: Not yet determined Problem Qualifiers (1) Hypotension: Qualified Code: I95.9 - Hypotension, unspecified hypotension type (2) CAD (coronary artery disease): Qualified Code: I25.10 - Coronary artery disease involving [place] heart without angina pectoris, unspecified vessel or lesion type (3) Schizophrenia: Qualified Code: F20.9 - Schizophrenia, unspecified type (4) Hypothyroid: Qualified Code: E03.9 - Hypothyroidism, unspecified type Km Schwartz DO March 30, 2017 11:10
[2017-03-30 12:14] LABS: MAGNESIUM 2.1 MG/DL (1.5-2.5)
[2017-03-30 12:35] LABS: CREATINE KINASE 100 U/L (39-308)
[2017-03-30] MEDS: risperiDONE 1 MG TAB PO SCH (13:33)
[2017-03-30] MEDS: CILOSTAZOL 50 MG TAB PO SCH ×2 (13:33→20:20)
[2017-03-30] MEDS: METOPROLOL SUCCINATE 50 MG EXTENDED RELEASE TAB PO SCH (13:33)
[2017-03-30] MEDS: LISINOPRIL 10 MG TAB PO SCH (13:33)
--- NOTE | 2017-03-30 15:13 | EKG ---
Date Performed: 03/29/2017 Time Performed: 20:28:42 PTAGE: 77 years EKG: Sinus rhythm with PVC(s). Left axis deviation Right bundle branch block Inferior infarct - age undetermined Later al ST-T changes are nonspecific Abnormal ECG PREVIOUS TRACING : 03/03/2016 04.07 Compared to previous tracing, T wave changes anterolaterall y have improved. DOCTOR: Dustin Lundberg Interpretating Date/Time 03/30/2017 15:12:57
--- NOTE | 2017-03-30 15:15 | EKG ---
Date Performed: 03/30/2017 Time Performed: 03:55:40 PTAGE: 77 years EKG: Right bundle branch block Left axis deviation Occasional PVCs Inferior infarct, age undeter mined Nonspecific T-wave change Since previous tracing, no significant change noted Abnormal ECG PREVIOUS TRACING : 03/29/2017 20.28 DOCTOR: Dustin Lundberg Interpretating Date/Time 03/30/2017 15:14:33
[2017-03-31] VITALS (17 sets, daily range): BP systolic 136–149; BP diastolic 63–80; PULSE 52–78; RESP 16–18; TEMP 97.4–98.3; O2SAT 96–98
[2017-03-31 04:59] LABS: BICARBONATE 27.1 MEQ/L (21.0-32.0); POTASSIUM 4.4 MEQ/L (3.5-5.1)
[2017-03-31] MEDS: LEVOTHYROXINE SODIUM 75 MCG TAB PO SCH (06:34)
--- NOTE | 2017-03-31 08:17 | HHI.PR ---
Subjective Remarks says he feels back to baseline and wants discharged after stress test. Objective Vitals heart reg lung cta abd s/nt ext no edema Vital Signs Date Time Temp Pulse Resp B/P Pulse Ox O2 Delivery O2 Flow Rate FiO2 03/31/17 07:00 59 03/31/17 06:00 59 03/31/17 05:00 60 03/31/17 04:00 52 03/31/17 04:00 98.0 60 16 139/63 98 03/31/17 03:00 66 03/31/17 02:00 62 03/31/17 01:00 59 03/31/17 00:00 98.0 56 16 149/79 98 03/31/17 00:00 56 03/30/17 23:00 59 03/30/17 22:00 62 03/30/17 21:00 59 03/30/17 20:00 64 03/30/17 20:00 97.5 59 16 132/66 98 03/30/17 20:00 97.5 59 17 132/66 98 03/30/17 19:00 59 03/30/17 18:01 59 03/30/17 17:42 21 03/30/17 17:00 64 03/30/17 16:19 59 03/30/17 16:15 98.2 59 14 156/83 92 03/30/17 15:00 66 03/30/17 14:00 62 03/30/17 13:00 60 03/30/17 12:00 60 03/30/17 11:39 97.8 68 14 145/65 100 03/30/17 11:00 58 03/30/17 10:25 97 03/30/17 10:00 58 03/30/17 09:00 76 03/30/17 03/30/17 03/31/17 15:00 23:00 07:00 Intake Total 1635 ml 480 ml Output Total 1075 ml Balance 1635 ml -595 ml Intake Oral 420 ml 480 ml IV Total 1215 ml Output Urine Total 1075 ml # Voids 5 # Bowel Movements 1 Result Diagram: 03/30/17 0350 03/31/17 0405 Imaging Last Impressions Chest X-Ray 03/29/172026 Signed Impressions: Service Date/Time: Wednesday, March 29, 2017 21:06 - CONCLUSION: Compensated cardiomegaly otherwise negative Denis López MD FACR Head CT 03/29/17 0000 Signed Impressions: Service Date/Time: Wednesday, March 29, 2017 21:03 - CONCLUSION: Negative for acute process. Denis López MD FACR Cervical Spine CT 03/29/17 0000 Signed Impressions: Service Date/Time: Wednesday, March 29, 2017 21:03 - CONCLUSION: 1. Degenerative changes as described above. 2. There is no evidence of fracture. Denis López MD FACR A/P Problem List: (1) Near syncope Status: Acute Plan: Pt presented with near syncope and hypotension Found to have trisha/dehydration. describes intermittent diarrhea. He has chronic troponin elevation Pt rehydrated and will stop ivf to avoid chf exacerbation echo and ember today per cardiology. Pt wants to go home if stress negative for ischemia. - CT brain (03/30/17) --> no acute findings ambulate today addendum: ember neg for ischemia. known ischemic cardiomyopathy and low ef..follows with cardiology. pt wants to go home...f/u with his psychology assistant this week.. (2) Hypotension Status: Acute Plan: - see above - resolved (3) Elevated troponin Status: Acute Plan: - flat pattern - NO c/o chest pain - obtain echocardiogram - obtain lexiscan (4) CAD (coronary artery disease) Status: Acute Plan: - lisinopril, metoprolol, asa - see above (5) Schizophrenia Status: Acute Plan: - continue Risperdal - also report of early dementia (6) Hypothyroid Status: Chronic Plan: - TSH was high on admission at 10.4 - unclear if pt was taking his synthroid - repeat TSH and free T4 in 4-6 weeks (7) Ischemic cardiomyopathy Status: Chronic Plan: - EF 30-35% by echo 03/04/06 - repeat echocardiogram (8) CRI (chronic renal insufficiency) Status: Chronic Plan: - observe (9) Abrasion of knee, bilateral Status: Acute Plan: - wash with soap and water daily - cover with telfa dressing Problem Qualifiers (1) Hypotension: Qualified Code: I95.9 - Hypotension, unspecified hypotension type (2) CAD (coronary artery disease): Qualified Code: I25.10 - Coronary artery disease involving [place] heart without angina pectoris, unspecified vessel or lesion type (3) Schizophrenia: Qualified Code: F20.9 - Schizophrenia, unspecified type (4) Hypothyroid: Qualified Code: E03.9 - Hypothyroidism, unspecified type Dustin Richardson MD March 31, 2017 08:17
[2017-03-31] MEDS: ASPIRIN 325 MG TAB PO SCH (08:41)
[2017-03-31] MEDS: CILOSTAZOL 50 MG TAB PO SCH (08:41)
[2017-03-31] MEDS: METOPROLOL SUCCINATE 50 MG EXTENDED RELEASE TAB PO SCH (08:41)
[2017-03-31] MEDS: risperiDONE 1 MG TAB PO SCH (08:41)
[2017-03-31] MEDS: SODIUM CHLORIDE 0.9% FLUSH 10 ML FLUSH IV FLUSH SCH (08:42)
[2017-03-31] MEDS: LISINOPRIL 10 MG TAB PO SCH (08:42)
--- NOTE | 2017-03-31 09:24 | PD.CARD.PN ---
Subjective Subjective Remarks Feels "good". Denies CP, dyspnea, dizziness, PND, palpitations. Slept well. Objective Medications Item Value Date Time Lisinopril 10 mg 03/30/17 1100 (Prinivil) DAILY/PO 03/31/17 0842 Metoprolol 50 mg 03/30/17 1100 Succinate DAILY/PO 03/31/17 0841 (Toprol Xl) Aspirin 325 mg 03/30/17 0900 (Aspirin) DAILY/PO 03/31/17 0841 Cilostazol 50 mg 03/30/17 0900 (Pletal) BID/PO 03/31/17 0841 Vital Signs / I&O Vital Signs Date Time Temp Pulse Resp B/P Pulse Ox O2 Delivery O2 Flow Rate FiO2 03/31/17 08:28 96 21 03/31/17 08:00 98.3 61 18 137/67 96 03/31/17 07:00 59 03/31/17 06:00 59 03/31/17 05:00 60 03/31/17 04:00 52 03/31/17 04:00 98.0 60 16 139/63 98 03/31/17 03:00 66 03/31/17 02:00 62 03/31/17 01:00 59 03/31/17 00:00 98.0 56 16 149/79 98 03/31/17 00:00 56 03/30/17 23:00 59 03/30/17 22:00 62 03/30/17 21:00 59 03/30/17 20:00 64 03/30/17 20:00 97.5 59 16 132/66 98 03/30/17 20:00 97.5 59 17 132/66 98 03/30/17 19:00 59 03/30/17 18:01 59 03/30/17 17:42 21 03/30/17 17:00 64 03/30/17 16:19 59 03/30/17 16:15 98.2 59 14 156/83 92 03/30/17 15:00 66 03/30/17 14:00 62 03/30/17 13:00 60 03/30/17 12:00 60 03/30/17 11:39 97.8 68 14 145/65 100 03/30/17 11:00 58 03/30/17 10:25 97 03/30/17 10:00 58 I/O 03/30/17 03/30/17 03/30/17 03/31/17 03/31/17 03/31/17 07:00 15:00 23:00 07:00 15:00 23:00 Intake Total 860 ml 1635 ml 480 ml Output Total 1075 ml Balance 860 ml 1635 ml -595 ml Intake Oral 360 ml 420 ml 480 ml IV Total 500 ml 1215 ml Output Urine Total 1075 ml # Voids 3 5 # Bowel Movements 1 1 Physical Exam GENERAL: Well developed, well nourished. No acute distress. HEENT: Jugular venous pressure is normal. CHEST: Lungs clear to auscultation bilaterally. Unlabored respiratory effort. CARDIAC: Regular rate and rhythm without S3, S4, or murmur. ABDOMEN: Soft, nontender, no hepatosplenomegaly. Bowel sounds present. EXTREMITIES: No clubbing, cyanosis, or edema. Laboratory Laboratory Tests Test 03/30/17 03/31/17 11:10 04:05 Magnesium Level 2.1 MG/DL Total Creatine Kinase 100 U/L Troponin I 0.64 NG/ML 0.61 NG/ML Vitamin B12 Level 489 PG/ML Folate GREATER THAN 20.0 NG/ML Sodium Level 140 MEQ/L Potassium Level 4.4 MEQ/L Chloride Level 105 MEQ/L Carbon Dioxide Level 27.1 MEQ/L Anion Gap 8 MEQ/L Blood Urea Nitrogen 20 MG/DL Creatinine 1.33 MG/DL Estimat Glomerular Filtration 52 ML/MIN Rate Random Glucose 119 MG/DL Calcium Level 8.2 MG/DL Assessment and Plan Problem List: (1) Near syncope Assessment and Plan: No further near syncope. BP's normal. Echo pending. Rhythm sinus. (2) Hypotension Assessment and Plan: Resolved. Normotensive here in the hospital. Awaiting cardiac testing. (3) CAD (coronary artery disease) Assessment and Plan: Stable. No definite angina symptoms. Slight elevations in troponin possibly due to the hypotension. Await nuclear stress testing. (4) Hypertension Assessment and Plan: Stable at present. Normotensive. Cont same. (5) Ischemic cardiomyopathy Assessment and Plan: Compensated. Stable. No CHF. Await echo. Continue beta socrates, SHELLY-I. Code Status full code Discussed Condition With patient Problem Qualifiers (1) Hypotension: Qualified Code: I95.9 - Hypotension, unspecified hypotension type (2) CAD (coronary artery disease): Qualified Code: I25.10 - Coronary artery disease involving [place]ki heart without angina pectoris, unspecified vessel or lesion type (3) Hypertension: Qualified Code: I10 - Essential hypertension Buddy Rosario MD March 31, 2017 09:23
[2017-03-31] MEDS ORDERED: PNEUMOCOCCAL POLYVALENT INJ 25 MCG/0.5 ML SYR IM ONE (10:00)
[2017-03-31] MEDS ORDERED: INFLUENZA VIRUS VACCINE (QUADRIVALENT) 0.5 ML SYR IM ONE (10:00)
[2017-03-31] MEDS ORDERED: REGADENOSON INJ 0.4 MG/5 ML SYR ONE (10:46)
--- NOTE | 2017-03-31 12:30 | RADRPT ---
EXAM DATE/TIME: 03/31/2017 10:40 [facility] COMPARISON: MYOCARDIAL PERF PHARM SPECT, GATED W/EF, March 04, 2016, 10:36. INDICATIONS : Cardiomegaly. Coronary artery disease. Myocardial infarction. DOSE: 25.8 mCi Tc99m Myoview at stress. 8.1 mCi Tc99m Myoview at rest. 0.4 mg Lexiscan STRESS SYMPTOMS: None. EJECTION FRACTION: 22% MEDICAL HISTORY : Hypothyroidism. Congestive heart failure. SURGICAL HISTORY : Coronary artery stent. Cholecystectomy. Vasectomy. ENCOUNTER: Initial ACUITY: 1 day PAIN SCALE: 3/10 LOCATION: Bilateral chest TECHNIQUE: The patient underwent pharmacologic stress with infusion of prescribed dose. Continuous ECG tracing was monitored during stress. Gated SPECT imaging was performed after stress and conventional SPECT i maging was performed at rest. The examination was performed on a SPECT/CT scanner, both attenuation and non-corrected datasets were reviewed. FINDINGS: DISTRIBUTION: The maximum perfused segment at stress is in the anterolateral wall. PERFUSION STUDY: Left ventricle is dilated and there is a fixed defect involving the inferolateral and inferoseptal wa ll very similar to the prior study. No reversible perfusion defect is identified. GATED STUDY: There is global hypokinesia. CONCLUSION: 1. Examination demonstrates large fixed defect involving the inferolateral and inferoseptal wall sugg esting prior infarct. No reversible perfusion defect is identified. 2. Dilated left ventricle with global hypokinesia and reduced ejection fraction calculated at 22%. RISK CATEGORY: High (>3% Annual Mortality Rate) Pramod Arcos MD on March 31, 2017 at 12:24 Board Certified Radiologist. This report was verified electronically.
--- NOTE | 2017-03-31 14:36 | HHI.DCPOC ---
Discharge Care Plan Diagnosis: (1) Near syncope (2) Abrasion of knee, bilateral (3) Hypotension (4) Acute kidney injury (5) Coronary artery disease involving [place] coronary artery (6) Hypertension (7) Hypothyroidism (8) Hypothyroid Goals to Promote Your Health * To prevent worsening of your condition and complications * To maintain your health at the optimal level Directions to Meet Your Goals Take your medications as prescribed Follow your dietary instruction Follow activity as directed Keep your appointments as scheduled Take your immunizations and boosters as scheduled If your symptoms worsen call your PCP, if no PCP go to Urgent Care Center or Emergency Room Smoking is Dangerous to Your Health. Avoid second hand smoke Call the 24-hour hour crisis hotline for domestic abuse at Dustin Richardson MD March 31, 2017 14:36
[2017-04-01 11:10] LABS: RAPID PLASMA REAGIN SCREEN NON-REACTIVE (NON-REACTVE)
== END 2017-03-31 17:40 | disposition home or self-care (01) | DRG 315 ==
LOC: PHED 19:06 → PHEDA 23:43 → HCIN 03-30 02:33
PROVIDERS: ADMIT Hospitalist; ATTEND Hospitalist
DX: I95.9 Hypotension, unspecified (principal); N17.9 Acute kidney failure, unspecified; E86.0 Dehydration; F03.90 Unspecified dementia, unspecified severity, without behavioral disturbance, psychotic disturbance, mood disturbance, and anxiety; I25.5 Ischemic cardiomyopathy; R55 Syncope and collapse; F20.9 Schizophrenia, unspecified; I25.10 Atherosclerotic heart disease of native coronary artery without angina pectoris; Z95.5 Presence of coronary angioplasty implant and graft; I25.2 Old myocardial infarction; Z79.02 Long term (current) use of antithrombotics/antiplatelets; Z79.82 Long term (current) use of aspirin; E03.9 Hypothyroidism, unspecified; S80.212A Abrasion, left knee, initial encounter; S80.211A Abrasion, right knee, initial encounter; W18.39XA Other fall on same level, initial encounter; I12.9 Hypertensive chronic kidney disease with stage 1 through stage 4 chronic kidney disease, or unspecified chronic kidney disease; N18.9 Chronic kidney disease, unspecified; Z87.891 Personal history of nicotine dependence
CPT/HCPCS: 70450; 71010; 72125; 78452; 80048; 82140; 82550; 82552; 82607; 82746; 83735; 83880; 84439; 84443; 84481; 84484; 85025; 85610; 85730; 86592; 93005; 93017; 96360; A9502; J2785; J7040

== ENCOUNTER → 2017-05-08 | Day surgery (SDC) | payer MEDICARE, OTHER ==
[~2017-05-08] MED LIST changes: -ASPI325T PO; +ASPI81CH CHEW; +CHLORHEXIDINE GLUCONATE 2 % 1 PACK (2 CLOTHS) TOPICAL PRN; +CILO50TA PO; +CYAN1TAB24; +CYCLOPENTOLATE HCL 1% OPHT SOLN 2 ML BTL ONE; +FLURBIPROFEN 0.03% OPHT SOLN 2.5 ML BTL ONE; -FOLI1 PO; +HYALURONIDASE/LIDOCAINE/EPINEPHRINE/BUPIVACAINE 6 ML SYR LEFT EYE ONE; +INSULIN HUMAN REGULAR 1,000 UNITS/10 ML VIAL SQ PRN; +LACTATED RINGER'S 1000 ML IV PRN; -LEVO.05 PO; +LEVO75TA3 PO; +LIDOCAINE HCL 1% PF 30 ML VIAL ONE; -LISI10 PO; +LISI10TA3 PO; -METO25 PO; +METO50TA11 PO; +METOPROLOL TARTRATE 25 MG TAB PO PRN; +MULT1TAB46; +MULT1TAB93 PO; +PHENYLEPHRINE HCL 10% OPTH SOLN 5 ML BTL ONE; +POVIDONE IODINE 5% (ANTISEPSIS KIT) 4 APPLICATIONS EACH NARE PRN; +PROPARACAINE HCL 0.5% OPHT SOLN 15 ML BTL LEFT EYE ONE; +PROPARACAINE HCL 0.5% OPHT SOLN 15 ML BTL ONE; +PROPOFOL 200 MG/20 ML AMP ONE; +RISP1TAB2 PO; -RISP1TAB54 PO; +SODIUM CHLORID 0.9% 500 ML IV PRN; -THIA100T PO; +TOBRAMYCIN/DEXAMETHASONE OPTH OINT 3.5 GM TUBE ONE; +TROPICAMIDE 1% OPHT SOLN 15 ML BTL ONE; +VITA2000 PO
[2017-05-08] MEDS: PHENYLEPHRINE HCL 10% OPTH SOLN 5 ML BTL LEFT EYE SCH ×4 (08:55→09:10)
[2017-05-08] MEDS: FLURBIPROFEN 0.03% OPHT SOLN 2.5 ML BTL LEFT EYE SCH ×4 (08:55→09:10)
[2017-05-08] MEDS: TROPICAMIDE 1% OPHT SOLN 15 ML BTL LEFT EYE SCH ×4 (08:55→09:10)
[2017-05-08] MEDS: CYCLOPENTOLATE HCL 1% OPHT SOLN 2 ML BTL LEFT EYE SCH ×4 (08:55→09:10)
[2017-05-08 09:05] VITALS: PULSE 55
[2017-05-08 11:05] VITALS: BP 122/76; PULSE 49; RESP 16; TEMP 98; O2SAT 95
--- NOTE | 2017-05-08 20:23 | MP ---
cc: ANTHONY JOHNS M.D. DATE OF SURGERY: 05/08/2017. [facility] NUMBER: [id number]. PREOPERATIVE DIAGNOSIS Visually significant cataract left eye. POSTOPERATIVE DIAGNOSIS Visually significant cataract left eye. OPERATION Phacoemulsification with posterior chamber lens implantation, left eye. SURGEON Anthony Johns MD ANESTHESIA Retrobulbar with MAC. COMPLICATIONS None PROCEDURE After informed consent was obtained, the patient was brought into the operative suite and placed on appropriate monitors by the Anesthesia Service. The patient had received a prior retrobulbar injection of local anesthetic by the Anesthesia Service in the holding area. The patient's operative eye was then prepped and draped in the usual sterile fashion. A wire lid speculum was placed. A paracentesis incision was made in the peripheral cornea with a 1 mm devora keratome. The anterior chamber was filled with viscoelastic. The anterior chamber was then entered through a stepped, clear corneal incision using a sharp 3 mm devora keratome. A circular tear capsulorrhexis was then made with a bent needle cystitome. Following hydrodissection of the lens nucleus with balanced saline, phacoemulsification of the nucleus was performed using a modified chopping technique. The remaining cortex was removed with irrigation/aspiration. The prior two procedures were both performed using the handpieces of the [employer] phaco unit. The capsular bag was then filled with viscoelastic. The intraocular lens was then injected into the capsular bag and positioned. The type of intraocular lens and its power can be found elsewhere in this chart. The remaining viscoelastic was then removed from the anterior chamber with the IA handpiece. The anterior chamber was reformed with balanced saline. The wound was then closed securely with stromal hydration. It was found to be watertight to an intraocular pressure of at least 30 mmHg by palpation. A small amount of balanced salt solution was then removed through the paracentesis site and the intraocular pressure at the end of the case was approximately 20 by palpation. All drapes were then removed. TobraDex ointment was then placed in the eye, which was closed beneath a semi-pressure patch dressing. The patient tolerated this procedure well and left the operating room awake and alert. The patient is to follow-up in my office in the morning. ADDENDUM: Due to the patient's poorly dilating pupil, a Malyugan ring was used to promote and maintain adequately pupillary mydriasis for phacoemulsification and lens implantation. MD PAULA Muller/DAVID /10:23 AM /8:21 PM
== END | disposition home or self-care (01) ==
LOC: PHSDC 07:44
PROVIDERS: ATTEND Optometrist Occupational Vision
DX: H25.812 Combined forms of age-related cataract, left eye (principal); H54.8 Legal blindness, as defined in USA; H35.3230 Exudative age-related macular degeneration, bilateral, stage unspecified; I10 Essential (primary) hypertension; E53.8 Deficiency of other specified B group vitamins; E03.9 Hypothyroidism, unspecified; I13.0 Hypertensive heart and chronic kidney disease with heart failure and stage 1 through stage 4 chronic kidney disease, or unspecified chronic kidney disease; I50.20 Unspecified systolic (congestive) heart failure; N18.9 Chronic kidney disease, unspecified; I25.10 Atherosclerotic heart disease of native coronary artery without angina pectoris; I25.2 Old myocardial infarction; I42.9 Cardiomyopathy, unspecified
CPT/HCPCS: 00142; 66982; J7040; V2632